=== PATIENT | male | born 1950 | race Caucasian/White ===

== ENCOUNTER 2023-05-17 20:03 | Emergency (ER) | payer OTHER ==
[~2023-05-17] VITALS: Ht 165.1 cm; Wt 65.0 kg
[2023-05-17 20:27] VITALS: O2SAT 98
[2023-05-17] MEDS ORDERED: ONDANSETRON HCL 4MG/2ML INJ IV ONE (20:30)
[2023-05-17] MEDS ORDERED: FAMOTIDINE 20MG/2ML VIAL IV ONE (20:30)
[2023-05-17 21:50] LABS: CLARITY URINE CLEAR (CLEAR); COLOR URINE YELLOW (YELLOW); GLUCOSE URINE NEGATIVE (NEGATIVE); KETONES URINE NEGATIVE (NEGATIVE); LEUKOCYTE ESTERASE URINE NEGATIVE (NEGATIVE); NITRITE URINE NEGATIVE (NEGATIVE); OCCULT BLOOD URINE NEGATIVE (NEGATIVE); PROTEIN URINE 1+ (NEGATIVE); SPECIFIC GRAVITY URINE 1.018 (1.005-1.030); UROBILINOGEN URINE 0.2 E.U./dL (0.2-1.0)
[2023-05-17 21:53] LABS: BACTERIA URINE NONE SEEN; RBC URINE 0-2 /hpf (0-2); SQUAMOUS EPITHELIAL CELL URINE NONE SEEN /lpf (RARE/1+); YEAST URINE NONE SEEN
[2023-05-17 21:55] LABS: HEMATOCRIT. 39.2 % (42.0-52.0); HEMOGLOBIN. 12.9 g/dL (14.0-18.0); MEAN CORPUSCULAR HGB CONC 32.9 g/dL (31.0-37.0); MEAN CORPUSCULAR VOLUME 91.5 fL (80.0-94.0); MEAN PLATELET VOLUME 9.2 fl (7.4-10.4); PLATELET 182 x1000/uL (130-400); RED BLOOD CELL COUNT 4.28 mill/uL (4.7-6.1); RED CELL DISTRIBUTION WIDTH 13.5 % (11.6-14.6); WHITE BLOOD COUNT 19.5 x1000/uL (4.5-11.0)
[2023-05-17 21:59] LABS: DIFFERENTIAL COMMENT 1
[2023-05-17 22:07] LABS: COARSE GRANULAR CASTS URINE 0-5 /lpf
[2023-05-17 22:14] LABS: CHLORIDE 105 mEq/L (98-107); INDEX HEMOLYSI 1 (1-3); INDEX ICTERIC 1 (1-4); INDEX LIPEMIC 1 (1-3); SODIUM 138 mEq/L (136-145)
[2023-05-17 22:23] LABS: ALANINE AMINOTRANSFERASE 23 IU/L (13-61); ASPARTATE AMINOTRANSFERASE 23 IU/L (15-37); BILIRUBIN TOTAL 0.3 mg/dL (0.1-1.0); CALCIUM 8.9 mg/dL (8.5-10.1); CARBON DIOXIDE 27 mEq/L (21-32); CREATININE 1.1 mg/dL (0.6-1.3); GLUCOSE 256 mg/dL (70-105); PROTEIN TOTAL 7.6 g/dL (6.0-8.3); TROPONIN I HIGH SENSITIVITY 11 ng/L (<78); UREA NITROGEN BLOOD 22 mg/dL (7-21)
[2023-05-17 22:24] LABS: PLATELET ESTIMATE NORMAL
[2023-05-17 22:26] LABS: LACTIC ACID 3.4 mmol/L (0.4-2.0)
[2023-05-17] MEDS ORDERED: ONDANSETRON HCL 4MG/2ML INJ IV NR (22:27)
[2023-05-17] MEDS ORDERED: FAMOTIDINE 20MG/2ML VIAL IV NR (22:30)
[2023-05-17 23:30] LABS: TROPONIN I HIGH SENSITIVITY 13 ng/L (<78)
[2023-05-18] MEDS ORDERED: IOHEXOL-350 100 ML BOTTLE ONE (00:18)
[2023-05-18] MEDS ORDERED: LACTATED RINGERS 1,000 ML IV SCH (01:45)
[2023-05-18 03:47] VITALS: BP 119/49; PULSE 57; RESP 22; TEMP 98.2
== END 2023-05-18 04:10 | disposition short-term general hospital (02) ==
LOC: ER 20:03
DX: C25.9 Malignant neoplasm of pancreas, unspecified (principal); R10.13 Epigastric pain; I48.91 Unspecified atrial fibrillation; I10 Essential (primary) hypertension
CPT/HCPCS: 99285; 96374; 96375; 80053; 81003; 83605; 83690; 85025; 84484; 36415; 93005; 74174; 96361; Q9967 ×2; J3490; J2405